=== PATIENT | female | born 1960 | race Caucasian/White ===

== ENCOUNTER 2017-02-04 15:15 | Inpatient (IN) | payer BC ==
[~2017-02-04] VITALS: Ht 162.6 cm; Wt 68.5 kg
[2017-02-04] MEDS ORDERED: PROG100C6 PO (15:32)
[2017-02-04] MEDS ORDERED: CHLO50TA PO (15:32)
[2017-02-04] MEDS ORDERED: POTA20TA83 PO (15:32)
--- NOTE | 2017-02-04 16:00 | NUR ---
pt c/o n/v and anxiety, getting worse throughout day. Pt denies dizziness, LOPEZ, CP, SOB, no other complaints, no distress noted but pt appears very anxious.
[2017-02-04] MEDS ORDERED: PANTOPRAZOLE SODIUM IV 40 MG in IV DEXTROSE 5% 100 ML IV ONE (16:15)
[2017-02-04] MEDS ORDERED: IV NS 1000 ML 1,000 ML IV ONE (16:15)
[2017-02-04] MEDS ORDERED: ONDANSETRON IV *ER 4 MG/2 ML VIAL IV ONE (16:15)
[2017-02-04] MEDS ORDERED: ONDANSETRON 4 MG/2 ML VIAL ONE (16:21)
[2017-02-04] MEDS ORDERED: PANTOPRAZOLE SODIUM 40 MG VIAL ONE (16:21)
[2017-02-04 16:26] LABS: EOSINOPHILS # (AUTO) 0.1 K/uL (0.0-0.7); EOSINOPHILS % (AUTO) 0.7 % (0.0-7.0); HEMATOCRIT 40.9 % (37-47); HEMOGLOBIN 13.9 G/DL (12.0-16.0); LYMPHOCYTES # (AUTO) 0.7 K/UL (0.8-4.8); LYMPHOCYTES % (AUTO) 7.3 % (20.5-51.5); MEAN CORPUSCULAR HEMOGLOBIN 29.2 UUG (27.0-31.0); MEAN CORPUSCULAR HGB CONC 34 g/dL (32.0-37.0); MEAN CORPUSCULAR VOLUME 86.1 FL (81.0-99.0); MONOCYTES # (AUTO) 0.1 K/UL (0.1-1.30); MONOCYTES % (AUTO) 1.3 % (0.0-11.0); NEUTROPHILS # (AUTO) 8.3 K/UL (1.8-8.9); NEUTROPHILS % (AUTO) 90.7 % (38.5-71.5); PLATELET COUNT (AUTO) 329 K/UL (150-450); RED BLOOD CELL COUNT(AUTO) 4.75 MIL/UL (4.2-5.4); WHITE BLOOD COUNT (AUTO) 9.2 K/UL (4.0-11.2)
[2017-02-04 16:42] LABS: BILIRUBIN,TOTAL 1.2 mg/dL (0.2-1.0); CREATININE 0.9 mg/dL (0.6-1.3)
[2017-02-04 16:44] LABS: POTASSIUM 2.6 mmol/L (3.5-5.1)
[2017-02-04] MEDS ORDERED: ALPRAZOLAM 0.25 MG TABLET PO ONE (16:45)
[2017-02-04] MEDS ORDERED: ALPRAZOLAM 0.25 MG TABLET ONE (16:47)
[2017-02-04 16:50] LABS: BAND % (MANUAL) 2 % (0-10); LYMPHOCYTES % (MANUAL) 9 % (20-40); MONOCYTES % (MANUAL) 3 % (2-10); NEUTROPHILS % (MANUAL) 86 % (42-75)
[2017-02-04] MEDS: POTASSIUM CHLORIDE 50 ML IV SCH ×5 (17:10→22:05)
--- NOTE | 2017-02-04 17:10 | NUR ---
Pt states her nausea and anxiety has not improved, Dr Jovel at bedside for eval.
[2017-02-04] MEDS ORDERED: METOCLOPRAMIDE HCL 10 MG/2 ML VIAL IV ONE ×2 (17:15→17:30)
[2017-02-04] MEDS ORDERED: POTASSIUM CHLORIDE 50 ML ONE ×2 (17:16→21:46)
[2017-02-04] MEDS ORDERED: METOCLOPRAMIDE HCL 10 MG/2 ML VIAL ONE (17:46)
[2017-02-04 18:01] LABS: *BILIRUBIN,URIN NEGATIVE (NEGATIVE); *BLOOD, URINE 2+ (NEGATIVE); *CLARITY,URINE CLEAR (CLEAR); *COLOR,URINE YELLOW (YELLOW); *KETONES,URINE 3+ (NEGATIVE); *PROTEIN,URINE 2+ (NEGATIVE); *UROBILINOGEN,URINE 0.2 E.U./dl (NORMAL); LEUKOCYTE ESTERASE ,URINE NEGATIVE (NEGATIVE); NITRITE, URINE NEGATIVE (NEGATIVE); UGLUCOSE NEGATIVE (NEGATIVE)
[2017-02-04 18:11] LABS: SQUAMOUS EPITHELIAL CELL,UR FEW /HPF (NONE SEEN); WBC,URINE 0-3 /HPF (0-3)
[2017-02-04] MEDS ORDERED: LORAZEPAM 2 MG/1 ML VIAL ONE (18:12)
[2017-02-04] MEDS ORDERED: LORAZEPAM 2 MG/1 ML VIAL IV ONE (18:45)
[2017-02-04] MEDS ORDERED: POTASSIUM CHLORIDE 100 ML ONE (18:51)
--- NOTE | 2017-02-04 19:49 | NUR ---
2ND FLOOR CALLED FOR TELE BED, ASSIGNED TO 222.
--- NOTE | 2017-02-04 20:00 | NUR ---
REPORT GIVEN TO DARLENE HANKS
--- NOTE | 2017-02-04 20:42 | NUR ---
bag 3 of 4 of potassium started.
[2017-02-04] MEDS ORDERED: MORPHINE SULFATE 2 MG/1 ML DISP.SYRIN IV PRN (21:30)
[2017-02-04] MEDS ORDERED: MAGNESIUM HYDROXIDE 30 ML LIQUID UDC PO PRN (21:30)
[2017-02-04] MEDS ORDERED: Z GUARD REMEDY PASTE 57 GM TUBE TOP PRN (21:30)
[2017-02-04] MEDS ORDERED: ACETAMINOPHEN 325 MG TABLET PO PRN (21:30)
[2017-02-04] MEDS ORDERED: ONDANSETRON 4 MG/2 ML VIAL IV PRN (21:30)
--- NOTE | 2017-02-04 22:00 | NUR ---
RECEIVED FROM ER VIA [facility], USHERED TO ROOM AND PLACED COMFORTABLY ON BED, ALERT AND ORIENTED X 4, ABLE TO MAKE NEEDS KNOWN. SR IN MONITOR. NO ACUTE DISTRESS ORDERED. ABLE TO PROVIDE HISTORY. NO COMPLAINTS OF NAUSEA AND VOMITING AT THIS TIME. BODY ASSESSMENT DONE. NEEDS ATTENDED. INSTRUCTED HOW TO USE CALL LIGHT WHEN IN NEED OF ASSISTANCE. CALL LIGHT WITHIN REACH. WILL CONTINUE TO MONITOR
--- NOTE | 2017-02-04 22:05 | NUR ---
ADMINISTERED 4TH BAG OF KCL ORDERED. WILL CONTINUE TO MONITOR
[2017-02-04 22:38] VITALS: BP 116/73
[2017-02-05] MEDS: HYDROCODONE/APAP 5-325MG TABLET PO PRN ×3 (02:15→16:49)
[2017-02-05] MEDS ORDERED: HYDROCODONE/APAP 5-325MG TABLET ONE (02:24)
[2017-02-05 04:00] VITALS: BP 129/82
--- NOTE | 2017-02-05 06:11 | NUR ---
SLEPT INTERMITTENTLY DURING THE SHIFT. NO ACUTE DISTRESS NOTED. NO NOTED VOMITING. NO COMPLAINTS OF NAUSEA BUT STILL COMPLAINED OF BEING ANXIOUS. STATED "I WANT THIS TO GO AWAY." PROVIDED REASSURANCE. NEEDS ATTENDED. CALL LIGHT WITHIN REACH. SR IN MONITOR. CALL LIGHT WITHIN REACH
[2017-02-05 07:18] LABS: CREATININE 0.8 mg/dL (0.6-1.3); MAGNESIUM 1.9 mg/dL (1.8-2.4); PHOSPHOROUS 3.2 mg/dL (2.5-4.9)
[2017-02-05 07:20] LABS: POTASSIUM 2.3 mmol/L (3.5-5.1)
[2017-02-05 07:41] LABS: BASOPHILS % (AUTO) 0.1 % (0.0-2.0); EOSINOPHILS # (AUTO) 0.1 K/uL (0.0-0.7); EOSINOPHILS % (AUTO) 0.8 % (0.0-7.0); HEMATOCRIT 40.3 % (37-47); HEMOGLOBIN 13.7 G/DL (12.0-16.0); LYMPHOCYTES # (AUTO) 1.4 K/UL (0.8-4.8); LYMPHOCYTES % (AUTO) 9.9 % (20.5-51.5); MEAN CORPUSCULAR HEMOGLOBIN 29.7 UUG (27.0-31.0); MEAN CORPUSCULAR HGB CONC 34 g/dL (32.0-37.0); MONOCYTES # (AUTO) 0.9 K/UL (0.1-1.30); MONOCYTES % (AUTO) 6.2 % (0.0-11.0); NEUTROPHILS # (AUTO) 11.4 K/UL (1.8-8.9); PLATELET COUNT (AUTO) 322 K/UL (150-450); RED BLOOD CELL COUNT(AUTO) 4.63 MIL/UL (4.2-5.4)
[2017-02-05] MEDS ORDERED: POTASSIUM CHLORIDE 20 MEQ TAB.PRT.SR PO ONE ×2 (07:45→11:00)
--- NOTE | 2017-02-05 07:49 | NUR ---
PATIENT VERY ANXIOUS WANTS TO LEAVE, KN 2.3 INSPECTOR SCREEN PRINTING NOTIFIED WITH ORDERS
[2017-02-05 07:51] LABS: WHITE BLOOD COUNT (AUTO) 13.8 K/UL (4.0-11.2)
[2017-02-05] MEDS: PANTOPRAZOLE SODIUM 40 MG TABLET.DR PO SCH (07:56)
[2017-02-05 08:02] VITALS: BP 125/83
[2017-02-05 11:04] VITALS: BP 122/85
--- NOTE | 2017-02-05 12:00 | NUR ---
MEDICATED FOR HEADACHE BUT NO NAUSEA AND VOMITING SEEN BY JAI ALAI PLAYER SEE NOTES. PATIENT DECIDED TO STAY FOR OBSERVATION AND K REPLACEMENT
[2017-02-05] MEDS: POTASSIUM CHLORIDE 50 ML IV SCH ×6 (12:33→17:45)
[2017-02-05 15:38] VITALS: BP 118/76
--- NOTE | 2017-02-05 17:46 | NUR ---
NO SIGNS OF NAUSEA AND VOMITING, AFEBRILE. K REPLACEMENT COMPLETED ORDERED, SR ON MONITOR
[2017-02-05 20:00] VITALS: BP 111/81
--- NOTE | 2017-02-05 20:00 | NUR ---
PT RECEIVED LAYING IN BED, NO ACUTE DISTRESS NOTED. PT HAS LAS BAG OF POTASSIUM RUNNING IN RIGHT ARM, TOLERATING WELL. PT IS AOX4 PLEASANT UPON APPROACH. BED IN LOW AND LOCKED POSITION, CALL LIGHT WITHIN REACH.
--- NOTE | 2017-02-05 22:00 | NUR ---
PT C/O MIGRAINES, GIVEN MORPHINE ORDERED PER PT REQUEST. NO ACUTE DISTRESS NOTED, SAFETY MEASURES MAINTAINED.
--- NOTE | 2017-02-06 03:18 | NUR ---
PT OBSERVED SLEEPING AT THIS TIME, NO ACUTE DISTRESS NOTED. WILL CONTINUE TO MONITOR FOR SAFETY.
[2017-02-06 04:00] VITALS: BP_SYST 119; BP_SYST 122; BP_DIAS 71; BP_DIAS 76
--- NOTE | 2017-02-06 05:26 | NUR ---
PT C/O MIGRAINE, PT STATING "I HAVE A MEDICATION CALLED MAXALT THAT I BROUGHT FROM HOME AND IF IT'S OKAY I WOULD LIKE TO TAKE IT". MD CALLED AND NOTIFIED ABOUT PT MORPHINE AND NORCO BEING INEFFECTIVE. PER MD OKAY FOR PATIENT TO HAVE MOTRIN 600MG X1 AND IF OKAY BY PHARMACY IN AM PT MAY HAVE OWN MEDICATION.
--- NOTE | 2017-02-06 06:30 | NUR ---
PT REFUSING TO TAKE ANY OTHER MEDICATION AT THIS TIME FOR MIGRAINE. PT REQUESTING TO TAKE OWN MEDICATION MAXALT. PT EDUCATED ABOUT MAXALT MEDICATION AND HOSPITAL PROTOCOL.
[2017-02-06] MEDS: PANTOPRAZOLE SODIUM 40 MG TABLET.DR PO SCH ×2 (06:33→06:45)
--- NOTE | 2017-02-06 06:45 | NUR ---
PT OBSERVED SLEEPING IN BED, NO ACUTE DISTRESS NOTED. BED IN LOW AND LOCKED POSITION, CALL LIGHT WITHIN REACH. SAFETY MEASURES MAINTAINED.
[2017-02-06 06:46] LABS: CREATININE 0.9 mg/dL (0.6-1.3); MAGNESIUM 2.1 mg/dL (1.8-2.4); POTASSIUM 3.4 mmol/L (3.5-5.1)
[2017-02-06 07:01] LABS: BASOPHILS % (AUTO) 0.6 % (0.0-2.0); EOSINOPHILS % (AUTO) 0.7 % (0.0-7.0); HEMOGLOBIN 13.3 G/DL (12.0-16.0); LYMPHOCYTES # (AUTO) 1.8 K/UL (0.8-4.8); LYMPHOCYTES % (AUTO) 27.2 % (20.5-51.5); MEAN CORPUSCULAR HEMOGLOBIN 29.6 UUG (27.0-31.0); MEAN CORPUSCULAR HGB CONC 34 g/dL (32.0-37.0); MEAN CORPUSCULAR VOLUME 86.7 FL (81.0-99.0); MONOCYTES # (AUTO) 0.5 K/UL (0.1-1.30); MONOCYTES % (AUTO) 7.8 % (0.0-11.0); NEUTROPHILS # (AUTO) 4.4 K/UL (1.8-8.9); NEUTROPHILS % (AUTO) 63.7 % (38.5-71.5); PLATELET COUNT (AUTO) 283 K/UL (150-450); RED BLOOD CELL COUNT(AUTO) 4.49 MIL/UL (4.2-5.4)
[2017-02-06 07:07] LABS: WHITE BLOOD COUNT (AUTO) 6.7 K/UL (4.0-11.2)
[2017-02-06] MEDS ORDERED: PATIENT MAY USE OWN MED- MD OK PO PRN (08:00)
[2017-02-06] MEDS ORDERED: RIZA10TA27 PO (09:23)
[2017-02-06] MEDS ORDERED: HOME MED MISCELLANEOUS PO PRN (09:30)
[2017-02-06] MEDS ORDERED: POTASSIUM CHLORIDE 20 MEQ TAB.PRT.SR PO ONE (10:30)
[2017-02-06] MEDS ORDERED: ALPR0.255 PO (10:44)
[2017-02-06] MEDS ORDERED: ALPRAZOLAM 0.25 MG TABLET PO ONE (10:45)
[2017-02-06 11:10] VITALS: BP 128/87
--- NOTE | 2017-02-06 13:00 | NUR ---
Pt is in no acute distress. Discharge instructions given to pt. PT verbalized understanding. Prescription given for xanax to pt. Pharmacist educated pt on new prescriptions its purpose and side effects. Reinforce to pt re: no driving when taking xanax. Pt verbalized understanding. Pt refused vaccine. Pts belonings given to pt. Pt signed for her valuables.
== END 2017-02-06 13:00 | disposition home or self-care (01) | DRG 641 ==
LOC: ER 15:19 → TELE-TD 21:38 → TELE 22:56 → MED 02-06 12:44
PROVIDERS: ADMIT Internal Medicine; ATTEND Internal Medicine
DX: E87.6 Hypokalemia (principal); I10 Essential (primary) hypertension; G89.29 Other chronic pain; D72.829 Elevated white blood cell count, unspecified; F41.9 Anxiety disorder, unspecified; R10.9 Unspecified abdominal pain; R11.2 Nausea with vomiting, unspecified
CPT/HCPCS: 36415; 70030-TC; 71010; 83690; 83735; 84100; 85025; 93005; A4663; C9113; J2060; J2270; J2405; J2765; J3480